=== PATIENT | female | born 1970 | race Two or more races ===

== ENCOUNTER 2017-06-21 15:41 | Outpatient (CLI) | payer OTHER ==
[~2017-06-21 15:41] MED LIST: LOSARTAN POTASS50 MG; TOPROL XL25 MG
== END 2017-06-21 15:56 | disposition home or self-care (01) ==
LOC: RAD 15:41
DX: M25.521 Pain in right elbow (principal)

== ENCOUNTER 2022-12-06 12:04 | Emergency (ER) | payer OTHER ==
[~2022-12-06] VITALS: Ht 165.1 cm; Wt 62.6 kg
[2022-12-06] MEDS ORDERED: IRBESARTAN-HCT1 EACH PO (12:40)
[2022-12-06 16:16] LABS: HEMATOCRIT 37.1 % (36.0-45.00); HEMOGLOBIN 12.9 g/dL (12.0-15.00); MEAN CORPUSCULAR HEMOGLOBIN 30.8 pg (27.00-32.0); MEAN CORPUSCULAR HGB CONC 34.7 g/dl (32.0-36.0); PLATELET COUNT 232 K/uL (150-450); RED BLOOD COUNT 4.17 M/uL (4.00-6.00); RED CELL DISTRIBUTION WIDTH 14.1 % (11.5-14.5)
[2022-12-06] MEDS ORDERED: DERMAGESIC CRE113 GM TOP ×2 (17:13→17:16)
[2022-12-06] MEDS ORDERED: PEPCID AC20 MG PO (17:16)
[2022-12-06] MEDS ORDERED: ZYRTEC10 MG PO (17:16)
== END 2022-12-06 17:58 | disposition home or self-care (01) ==
LOC: ER 12:04
PROVIDERS: Nurse Practitioner Family
DX: L50.9 Urticaria, unspecified (principal); I10 Essential (primary) hypertension; Z85.850 Personal history of malignant neoplasm of thyroid; Z20.822 Contact with and (suspected) exposure to COVID-19

== ENCOUNTER 2024-10-14 10:50 | Outpatient (CLI) | payer OTHER ==
[~2024-10-14 10:50] MED LIST changes: +DERMAGESIC CRE113 GM TOP; +IRBESARTAN-HCT1 EACH PO; +PEPCID AC20 MG PO; +ZYRTEC10 MG PO
== END 2024-10-14 10:52 | disposition home or self-care (01) ==
LOC: SONOGRAMA 10:50
PROVIDERS: ATTEND Pathology Anatomic Pathology & Clinical Pathology
DX: D34 Benign neoplasm of thyroid gland (principal); E07.89 Other specified disorders of thyroid; E04.2 Nontoxic multinodular goiter